=== PATIENT | male | born 1970 | race Caucasian/White ===

== ENCOUNTER 2021-05-25 10:30 | Inpatient (IN) ==
[2021-05-25] MEDS ORDERED: *HR* Labetalol 20 MG/4 ML SYRINGE IVP ONE ×2 (11:10→12:50)
[2021-05-25 12:07] LABS: Basophils # 0.1 K/mcL (0.0-0.2); Basophils % 1.2 %; Eosinophils # 0.2 K/mcL (0.0-0.6); Eosinophils % 1.8 %; Hematocrit 44.6 % (37.5-50.1); Immature Granulocytes % 0.2 % (0-4); Lymphocytes # 1.6 K/mcL (0.6-4.6); Lymphocytes % 19.1 %; Mean Corpuscular HGB Conc 33.6 g/dL (31.6-35.5); Mean Corpuscular Hemoglobin 29.9 pg (28.0-33.3); Mean Corpuscular Volume 88.8 fL (83.0-100.0); Monocytes # 0.8 K/mcL (0.0-1.3); Neutrophils # 5.5 K/mcL (1.6-8.9); Platelet Count 320 K/mcL (140-400); Red Blood Count 5.02 M/mcL (4.19-5.50); Red Cell Distribution Width 13.6 % (11.5-14.5); Segmented Neutrophils % 67.7 %; White Blood Count 8.2 K/mcL (4.3-11.1)
[2021-05-25 12:36] LABS: Alanine Aminotransferase 21 Units/L (7-52); Albumin 4.1 g/dL (3.5-5.7); Albumin/Globulin Ratio 1.4 (1.1-2.2); Alkaline Phosphatase 112 Units/L (34-104); Aspartate Amino Transferase 20 Units/L (13-39); BUN/Creatinine Ratio 14 (6-26); Bilirubin,Total 0.3 mg/dL (0.3-1.0); Blood Urea Nitrogen 12 mg/dL (6-20); Calcium 9.4 mg/dL (8.6-10.3); Carbon Dioxide 28 mEq/L (23-29); Chloride 104 mEq/L (98-107); Glucose 96 mg/dL (70-105); Osmolality,Calculated 288 (280-300); Potassium 3.5 mEq/L (3.5-5.1); Sodium 139 mEq/L (136-145); Total Protein 7.1 g/dL (6.4-8.9); eGFR For African Americans > 60 (> 60); eGFR For Non-African Americans > 60 (> 60)
[2021-05-25] MEDS ORDERED: Ketorolac 30 MG/ML VIAL IVP ONE (12:50)
[2021-05-25] MEDS ORDERED: niCARdipine 20 MG/200 ML MLS IVC SCH (14:00)
[2021-05-25] MEDS ORDERED: Metoclopramide 10 MG/2 ML VIAL IVP ONE (15:10)
[2021-05-25] MEDS ORDERED: *HR* OxyCODONE Immed Rel 5 MG TABLET PO PRN (15:46)
[2021-05-25] MEDS ORDERED: Mag Hydrox/Al Hydrox/Simeth 30 ML UDC PO PRN (15:46)
[2021-05-25] MEDS ORDERED: Naloxone 0.4 MG/ML INJ IVP PRN (15:46)
[2021-05-25] MEDS ORDERED: Melatonin 3 MG TABLET PO PRN (15:46)
[2021-05-25] MEDS: carvediloL 25 MG TABLET PO SCH (16:54)
[2021-05-25 17:02] LABS: Thyroid Stimulating Hormone 1.061 mcIU/mL (0.340-5.600)
[2021-05-25 18:35] LABS: Adenovirus Not Detected (Not Detect); Coronavirus 229E Not Detected (Not Detect); Coronavirus HKU1 Not Detected (Not Detect); Coronavirus NL63 Not Detected (Not Detect); Coronavirus OC43 Not Detected (Not Detect); Human Metapneumovirus Not Detected (Not Detect); Human Rhinovirus/Enterovirus Not Detected (Not Detect); Influenza A Subtype 2009 H1 Not Detected (Not Detect); SARS-CoV-2 Not Detected (Not Detect)
[2021-05-25 18:36] LABS: Bordetella Pertussis Not Detected (Not Detect); Chlamydophila pneumoniae Not Detected (Not Detect); Influenza B Not Detected (Not Detect); Mycoplasma pneumoniae Not Detected (Not Detect); Parainfluenza Virus 1 Not Detected (Not Detect); Parainfluenza Virus 2 Not Detected (Not Detect); Parainfluenza Virus 3 Not Detected (Not Detect); Parainfluenza Virus 4 Not Detected (Not Detect); Respiratory Syncytial Virus Not Detected (Not Detect)
[2021-05-25] MEDS: lisinopriL 20 MG TABLET PO SCH (20:56)
[2021-05-25] MEDS: Acetaminophen 325 MG TABLET PO PRN (21:14)
[2021-05-25] MEDS: Ondansetron ODT 4 MG TAB.RAPDIS SL PRN (21:14)
[2021-05-26 02:38] LABS: Hemoglobin 15.6 g/dL (12.9-16.9); Mean Corpuscular HGB Conc 33.9 g/dL (31.6-35.5); Mean Corpuscular Volume 88.5 fL (83.0-100.0); Mean Platelet Volume 8.9 fL (9.4-12.4); Platelet Count 342 K/mcL (140-400); Red Cell Distribution Width 13.6 % (11.5-14.5)
[2021-05-26 02:43] LABS: White Blood Count 17.6 K/mcL (4.3-11.1)
[2021-05-26 03:01] LABS: BUN/Creatinine Ratio 15 (6-26); Blood Urea Nitrogen 11 mg/dL (6-20); Calcium 9.5 mg/dL (8.6-10.3); Carbon Dioxide 25 mEq/L (23-29); Chloride 100 mEq/L (98-107); Glucose 128 mg/dL (70-105); Osmolality,Calculated 279 (280-300); Potassium 3.9 mEq/L (3.5-5.1); Sodium 134 mEq/L (136-145); eGFR For African Americans > 60 (> 60); eGFR For Non-African Americans > 60 (> 60)
[2021-05-26 08:34] LABS: Basophils # 0.1 K/mcL (0.0-0.2); Basophils % 0.3 %; Immature Granulocytes % 0.3 % (0-4); Lymphocytes # 1.1 K/mcL (0.6-4.6); Lymphocytes % 5.8 %; Monocytes # 0.7 K/mcL (0.0-1.3); Neutrophils # 16.1 K/mcL (1.6-8.9); Segmented Neutrophils % 89.6 %
[2021-05-26] MEDS: lisinopriL 20 MG TABLET PO SCH (08:51)
[2021-05-26] MEDS: Ondansetron ODT 4 MG TAB.RAPDIS SL PRN (08:51)
[2021-05-26] MEDS: carvediloL 25 MG TABLET PO SCH ×2 (08:51→17:22)
[2021-05-26] MEDS ORDERED: amLODIPine 5 MG TABLET PO SCH (09:00)
[2021-05-26] MEDS ORDERED: *HR* OxyCODONE Immed Rel 15 MG TABLET PO PRN ×3 (16:43→23:10)
[2021-05-26] MEDS ORDERED: Diclofenac Sodium (DR) 75 MG TABLET.DR PO PRN (16:43)
[2021-05-26] MEDS ORDERED: traZODone 50 MG TABLET PO PRN (16:51)
[2021-05-26] MEDS ORDERED: Acetaminophen IV 1,000 MG/100 ML BAG IVPB ONE (17:36)
[2021-05-26] MEDS ORDERED: AMPHETAMINE PO PRN (17:51)
[2021-05-26] MEDS ORDERED: DEXTROAMPHETAMINE PO PRN (17:51)
[2021-05-26] MEDS ORDERED: amLODIPine 5 MG TABLET PO ONE (18:55)
[2021-05-26] MEDS: *HR* Ticagrelor 90 MG TABLET PO SCH (20:46)
[2021-05-26] MEDS ORDERED: NIFEdipine Immed Rel 10 MG CAPSULE PO ONE (20:59)
[2021-05-27 00:35] LABS: Bacteria,Urine Few per hpf (None-Few); Bilirubin,Urine Negative (Negative); Blood,Urine Moderate (Negative); Clarity,Urine Clear (Clear); Color,Urine Yellow (Yellow); Glucose,Urine (UA) Normal (Normal); Ketones,Urine 40 mg/dL (Negative); Leukocyte Esterase,Urine Negative (Negative); Mucus,Urine Few per lpf (None-Few); Nitrite,Urine Negative (Negative); Protein,Urine 50 mg/dL (Neg-Trace); RBC,Urine 15-30 per hpf (0-3); Specific Gravity,Urine > 1.030 (1.010-1.025); Urobilinogen,Urine Normal (Normal)
[2021-05-27] MEDS ORDERED: NIFEdipine Immed Rel 10 MG CAPSULE PO ONE (01:10)
[2021-05-27] MEDS ORDERED: Acetaminophen IV 1,000 MG/100 ML BAG IVPB ONE (04:41)
[2021-05-27 06:26] LABS: Basophils % 0.2 %; Eosinophils % 0.1 %; Hematocrit 47.7 % (37.5-50.1); Hemoglobin 16.2 g/dL (12.9-16.9); Immature Granulocytes % 0.3 % (0-4); Lymphocytes # 1.1 K/mcL (0.6-4.6); Lymphocytes % 6.3 %; Mean Corpuscular Hemoglobin 29.9 pg (28.0-33.3); Monocytes # 1.3 K/mcL (0.0-1.3); Monocytes % 7.4 %; Platelet Count 374 K/mcL (140-400); Red Blood Count 5.42 M/mcL (4.19-5.50); Red Cell Distribution Width 13.9 % (11.5-14.5); Segmented Neutrophils % 85.7 %; White Blood Count 17.4 K/mcL (4.3-11.1)
[2021-05-27 06:51] LABS: BUN/Creatinine Ratio 25 (6-26); Blood Urea Nitrogen 18 mg/dL (6-20); Carbon Dioxide 26 mEq/L (23-29); Chloride 97 mEq/L (98-107); Glucose 105 mg/dL (70-105); Osmolality,Calculated 280 (280-300); Potassium 3.8 mEq/L (3.5-5.1); Sodium 134 mEq/L (136-145); eGFR For African Americans > 60 (> 60); eGFR For Non-African Americans > 60 (> 60)
[2021-05-27 06:54] LABS: Calcium 9.5 mg/dL (8.6-10.3)
[2021-05-27] MEDS ORDERED: amLODIPine 5 MG TABLET PO SCH (09:00)
[2021-05-27] MEDS ORDERED: hydrALAZINE 25 MG TABLET PO SCH (09:45)
[2021-05-27] MEDS: lisinopriL 20 MG TABLET PO SCH (10:26)
[2021-05-27] MEDS: NIFEdipine XL (24 HR) 60 MG TAB.ER.24 PO SCH (10:26)
[2021-05-27] MEDS: carvediloL 25 MG TABLET PO SCH ×2 (10:27→16:11)
[2021-05-27] MEDS: *HR* Ticagrelor 90 MG TABLET PO SCH ×2 (10:27→20:44)
[2021-05-27] MEDS: hydrALAZINE 25 MG TABLET PO SCH ×3 (10:41→20:45)
[2021-05-27] MEDS ORDERED: Perflutren Lipid Microsphere 1.3 ML in 0.9 % Sodium Chloride 8.7 ML IVP PRN (10:54)
[2021-05-27] MEDS: Acetaminophen 325 MG TABLET PO PRN (21:22)
[2021-05-28 06:46] LABS: Basophils # 0.1 K/mcL (0.0-0.2); Basophils % 0.3 %; Eosinophils % 0.1 %; Hemoglobin 17.5 g/dL (12.9-16.9); Immature Granulocytes % 0.4 % (0-4); Lymphocytes # 1.5 K/mcL (0.6-4.6); Lymphocytes % 9.1 %; Mean Corpuscular Hemoglobin 30.5 pg (28.0-33.3); Mean Corpuscular Volume 87.1 fL (83.0-100.0); Mean Platelet Volume 9.1 fL (9.4-12.4); Monocytes # 1.8 K/mcL (0.0-1.3); Monocytes % 11.2 %; Platelet Count 402 K/mcL (140-400); Red Blood Count 5.74 M/mcL (4.19-5.50); Red Cell Distribution Width 13.5 % (11.5-14.5); Segmented Neutrophils % 78.9 %; White Blood Count 16.5 K/mcL (4.3-11.1)
[2021-05-28 07:07] LABS: BUN/Creatinine Ratio 24 (6-26); Blood Urea Nitrogen 20 mg/dL (6-20); Calcium 9.8 mg/dL (8.6-10.3); Carbon Dioxide 25 mEq/L (23-29); Chloride 94 mEq/L (98-107); Glucose 106 mg/dL (70-105); Osmolality,Calculated 275 (280-300); Potassium 3.4 mEq/L (3.5-5.1); Sodium 131 mEq/L (136-145); eGFR For African Americans > 60 (> 60); eGFR For Non-African Americans > 60 (> 60)
[2021-05-28] MEDS: lisinopriL 20 MG TABLET PO SCH (10:21)
[2021-05-28] MEDS: NIFEdipine XL (24 HR) 60 MG TAB.ER.24 PO SCH (10:21)
[2021-05-28] MEDS: hydrALAZINE 25 MG TABLET PO SCH ×3 (10:22→20:36)
[2021-05-28] MEDS: *HR* Ticagrelor 90 MG TABLET PO SCH ×2 (10:22→20:37)
[2021-05-28] MEDS: carvediloL 25 MG TABLET PO SCH ×2 (10:23→17:30)
[2021-05-29 02:40] LABS: Basophils # 0.1 K/mcL (0.0-0.2); Basophils % 0.4 %; Eosinophils % 0.2 %; Hematocrit 50.2 % (37.5-50.1); Hemoglobin 17.6 g/dL (12.9-16.9); Immature Granulocytes % 0.4 % (0-4); Lymphocytes # 1.9 K/mcL (0.6-4.6); Lymphocytes % 13.8 %; Mean Corpuscular HGB Conc 35.1 g/dL (31.6-35.5); Mean Corpuscular Hemoglobin 30.3 pg (28.0-33.3); Mean Corpuscular Volume 86.6 fL (83.0-100.0); Mean Platelet Volume 8.9 fL (9.4-12.4); Monocytes # 2.1 K/mcL (0.0-1.3); Monocytes % 15.1 %; Neutrophils # 9.8 K/mcL (1.6-8.9); Platelet Count 373 K/mcL (140-400); Red Cell Distribution Width 13.2 % (11.5-14.5); Segmented Neutrophils % 70.1 %
[2021-05-29 02:58] LABS: BUN/Creatinine Ratio 26 (6-26); Blood Urea Nitrogen 26 mg/dL (6-20); Calcium 9.6 mg/dL (8.6-10.3); Carbon Dioxide 23 mEq/L (23-29); Chloride 96 mEq/L (98-107); Glucose 106 mg/dL (70-105); Osmolality,Calculated 277 (280-300); Potassium 3.4 mEq/L (3.5-5.1); Sodium 131 mEq/L (136-145); eGFR For African Americans > 60 (> 60); eGFR For Non-African Americans > 60 (> 60)
[2021-05-29 05:39] LABS: Estimated Average Glucose 131 mg/dl; Hemoglobin A1C 6.2 %
[2021-05-29] MEDS: carvediloL 25 MG TABLET PO SCH ×2 (10:33→16:44)
[2021-05-29] MEDS: hydrALAZINE 25 MG TABLET PO SCH ×3 (10:34→20:23)
[2021-05-29] MEDS: *HR* Ticagrelor 90 MG TABLET PO SCH ×2 (10:35→20:27)
[2021-05-29] MEDS: lisinopriL 20 MG TABLET PO SCH (10:35)
[2021-05-29] MEDS: NIFEdipine XL (24 HR) 60 MG TAB.ER.24 PO SCH (10:37)
[2021-05-29] MEDS ORDERED: 0.9 % Sodium Chloride 500 ML IVC SCH (11:15)
[2021-05-30 02:31] LABS: Basophils # 0.1 K/mcL (0.0-0.2); Basophils % 0.6 %; Eosinophils # 0.1 K/mcL (0.0-0.6); Eosinophils % 0.5 %; Hematocrit 47.8 % (37.5-50.1); Hemoglobin 16.5 g/dL (12.9-16.9); Immature Granulocytes % 0.3 % (0-4); Lymphocytes # 2.3 K/mcL (0.6-4.6); Lymphocytes % 18.3 %; Mean Corpuscular HGB Conc 34.5 g/dL (31.6-35.5); Mean Corpuscular Hemoglobin 29.7 pg (28.0-33.3); Monocytes # 1.7 K/mcL (0.0-1.3); Monocytes % 13.8 %; Neutrophils # 8.2 K/mcL (1.6-8.9); Platelet Count 364 K/mcL (140-400); Red Blood Count 5.56 M/mcL (4.19-5.50); Red Cell Distribution Width 13.2 % (11.5-14.5); Segmented Neutrophils % 66.5 %; White Blood Count 12.3 K/mcL (4.3-11.1)
[2021-05-30 02:51] LABS: BUN/Creatinine Ratio 28 (6-26); Blood Urea Nitrogen 33 mg/dL (6-20); Calcium 9.2 mg/dL (8.6-10.3); Carbon Dioxide 23 mEq/L (23-29); Chloride 100 mEq/L (98-107); Glucose 109 mg/dL (70-105); Osmolality,Calculated 286 (280-300); Potassium 3.6 mEq/L (3.5-5.1); Sodium 134 mEq/L (136-145); eGFR For African Americans > 60 (> 60); eGFR For Non-African Americans > 60 (> 60)
[2021-05-30] MEDS: NIFEdipine XL (24 HR) 60 MG TAB.ER.24 PO SCH (07:29)
[2021-05-30] MEDS: carvediloL 25 MG TABLET PO SCH (07:29)
[2021-05-30] MEDS: lisinopriL 20 MG TABLET PO SCH (07:29)
[2021-05-30] MEDS: hydrALAZINE 25 MG TABLET PO SCH (07:30)
[2021-05-30] MEDS: *HR* Ticagrelor 90 MG TABLET PO SCH (07:30)
[2021-05-30 07:40] VITALS: TEMP 98.1
[2021-05-30 10:45] VITALS: PULSE 82; O2SAT 95
[2021-05-30 12:45] VITALS: BP 102/63
== END 2021-05-30 14:04 | disposition home or self-care (01) | DRG 305 ==
LOC: SUATTDRO → 3BNU 10:30 → EMEROOARM 10:30 → SUATTDRO 19:27 → 3BNU 20:25
PROVIDERS: ADMIT Family Medicine; ATTEND Family Medicine